=== PATIENT | female | born 1995 | race African-American/Black ===

== ENCOUNTER 2019-08-17 15:21 | Emergency (ER) | payer MEDICAID ==
[~2019-08-17] VITALS: Ht 172.7 cm; Wt 68.9 kg
[2019-08-17 18:46] VITALS: BP 121/67
[2019-08-17] MEDS ORDERED: LIDOCAINE 1% HCL (LOCAL ANESTH.) INJ 20ML MDV IJ ONE (19:15)
[2019-08-17] MEDS ORDERED: LET TOPICAL SOLN 5 ML TOP ONE ×2 (20:15→20:35)
== END 2019-08-17 21:03 | disposition home or self-care (01) ==
LOC: ER 15:25
DX: S61.002A Unspecified open wound of left thumb without damage to nail, initial encounter (principal); W20.0XXA Struck by falling object in cave-in, initial encounter; Y93.89 Activity, other specified; Y92.89 Other specified places as the place of occurrence of the external cause; Y99.8 Other external cause status
CPT/HCPCS: 11730; 99283; J3490